=== PATIENT | male | born 1935 | race Caucasian/White ===

== ENCOUNTER → 2016-07-14 12:30 | Outpatient (CLI) | payer MEDICARE, OTHER ==
[2015-06-02 13:13] VITALS: BMI 25.1
[~2016-07-14 12:30] MED LIST: ALDACTONE25 MG PO; BAYER CHEWABLE81 MG PO; COREG6.25 MG PO; LASIX INJ40 MG/4 ML PO
== END | disposition home or self-care (01) ==
LOC: D.CT 12:30
DX: R22.0 Localized swelling, mass and lump, head (principal)

== ENCOUNTER → 2018-01-11 11:24 | Outpatient (CLI) | payer MEDICARE, OTHER ==
[~2018-01-11] VITALS: Ht 175.3 cm; Wt 75.5 kg
--- NOTE | ~2018-01-11 | HEMODYNAMI ---
PATIENT:ADELAIDA GREEN MEDICAL RECORD: [id number] : 35 LOCATION:[facility] ADMISSION DATE: 01/11/18 Generatedon:01/11/201815:31 Patient name: ADELAIDA GREEN Patient #: [id number] SSN: : 1935 Date of study: 01/11/2018 Page: Of Hemodynamic Procedure Report Patient Data Patient Demographics Procedure consent was obtained First Name: ADELAIDA Gender: Male Last Name: PETER : 1935 Patient #: [id number] Age: 83 year(s) Race: Additional ID: [id number] Contact details Address: [address] [place] [address] State: [place] City: [place] Zip code: [address] Past Medical History Allergies: No known allergies Admission Admission Data Admission Date: 01/11/2018 Admission Time: 11:24 Height (in.): 67 BSA: 1.87 (m2) Height (cm.): 170.18 BMI: 26 (kg/m2) Weight (lbs.): 166 Weight (kg.): 75.3 Lab Results Lab Result Date: 01/11/2018 Lab Result Time: 0:00 Biochemistry Name Units Result Min Max BUN mg/dl 22 --(----)-* 7 18 Creatinine mg/dl 1.9 --(----)-* 0.6 1.3 CBC Name Units Result Min Max Hemoglobin g/dl 14.8 --(-*--)-- 13.5 17.5 Procedure Procedure Types Cath Procedure Diagnostic Procedure C LH w/Coronaries Sedation Charges Moderate Sedation up to 15 minutes PCI Procedure PTCA PTCA Initial Procedure Description Procedure Date Procedure Date: 01/11/2018 Procedure Start Time: 15:07 Procedure End Time: 15:27 Procedure Staff Name Function Júnior Bennett MD Performing Physician Marie Gonzalez RT Monitor Juno Wells RT Scrub Rekha Becker RN Nurse Matt Pitt RT High Pressure Kettle Operator Procedure Data Cath Procedure Fluoroscopy Diagnostic fluoroscopy Total fluoroscopy Time: 6.3 time: 6.3 min min Diagnostic fluoroscopy Total fluoroscopy dose: 665 dose: 665 mGy mGy Contrast Material Contrast Material Type Amount (ml) Isovue 300 86 Entry Location Entry Primary Successful Side Size Upsize Upsize Entry Closure Ibrahim ccessful Closure Location (Fr) 1 (Fr) 2 (Fr) Remarks Device Remarks Radial Right 6 Fr Mechanical artery Short Compression Estimated blood loss: 10 ml Diagnostic catheters Device Type Used For End Catheter Placement DIAGNOSTIC [place] 110cm 5 Procedure Fr catheter ([id number]) Procedure Complications No complications Procedure Medications Medication Administration Route Dosage 0.9% NaCl I.V. 100 ml/hr Oxygen etCO2 Nasal cannula 2 l/min Lidocaine 2% added to field 20 Heparin Flush Bag added to field 2 bags (1000units/500ml NS) Radial Cocktail added to field 1 syringe (Verapomil 2mg/Nitro 400mcg/Heparin 1500units) Versed I.V. 2 mg Fentanyl I.V. 50 mcg Versed I.V. 2 mg Heparin Bolus I.V. 4000 units Integrilin (Bolus I.V. 6.8 ml 2mg/ml) Plavix P.O. 600 mg Hemodynamics Rest BSA: 1.87 (m2) O2 Consumption: Estimated: 214.77 (ml/min) O2 Consumption indexed : Estimated:114.85 (ml/min/m) Heart Rate: 73 (bpm) Pressure Samples Time Site Value (mmHg) Purpose Heart Use Rate(bpm) 15:09 LV 83/7,11 Snapshot 73 15:10 AO 80/47(61) Pullback 67 15:10 LV 75/1,15 Pullback 67 Gradients Valve Time Site 1 Site 2 Mean SEP/DFP Peak To Heart Use (mmHg) (sec/min) Peak Rate (mmHg) (bpm) Aortic 15:10 LV AO 0 67 75/1,15 80/47(61) Calculations Valve P-P Mean Valve Index Valve Source Name Gradient Area Flow (cm2) Aortic 0 0 Snapshots Pre Cath Intra NCS Post Cath Vital Signs Time Heart Resp SPO2 etCO2 NIBP (mmHg) Rhythm Pain Sedation Rate (ipm) (%) (mmHg) Status Level (bpm) 14:56:37 68 18 98 30 191/79(165) NSR 0 (11) 10(A) , No pain 15:01:01 69 19 99 31.2 148/76(109) NSR 0 (11) 10(A) , No pain 15:05:21 67 18 97 32 109/61(86) NSR 0 (11) 10(A) , No pain 15:09:39 73 19 97 32.6 78/53(64) NSR 0 (11) 9(A) , No pain 15:13:43 70 19 97 33 90/53(67) NSR 0 (11) 9(A) , No pain 15:17:53 69 19 98 32 97/54(72) NSR 0 (11) 9(A) , No pain 15:22:03 68 18 97 31.6 93/58(79) NSR 0 (11) 9(A) , No pain 15:26:08 72 17 98 32 107/66(88) NSR 0 (11) 10(A) , No pain Medications Time Medication Route Dose Verified Delivered Reason Not es Effectiveness by by 14:55:23 0.9% NaCl I.V. 100 Júnior Rekha used for ml/hr [place] Eugenio procedure MD MORENO 14:55:29 Oxygen etCO2 2 l/min Júnior Rekha used for Nasal [place] Eugenio procedure cannula MD MORENO 14:55:35 Lidocaine 2% added 20ml Júnior Júnior for local to vial [facility] anesthetic field MD RUBIN 14:55:39 Heparin Flush added 2 bags Júnior Júnior for local Bag to [facility] anesthetic (1000units/500ml field MD RUBIN NS) 14:55:49 Radial Cocktail added 1 Júnior Júnior used for (Verapomil to syringe [facility] procedure 2mg/Nitro field MD RUBIN 400mcg/Heparin 1500units) 15:00:36 Versed I.V. 2 mg Júnior Rekha for sedation [facility] Bret Becker MD, RN 15:00:42 Fentanyl I.V. 50 mcg Júnior Rekha for sedation [facility] Bret Becker MD, RN 15:06:19 Versed I.V. 2 mg Júnior Rekha for sedation [facility] Bret Becker MD, RN 15:14:28 Heparin Bolus I.V. 4000 Júnior Rekha for vero ified units [facility] anticoagulation by Dr. MD MORENO [place] 15:16:50 Integrilin I.V. 6.8 ml Júnior Rekha for was zuly (Bolus 2mg/ml) [facility] Bret Becker anticoagulation 3.2mL MD MORENO 15:18:14 Plavix P.O. 600 mg Júnior Guadalupe antiplatelet RN therapy Procedure Log Time Note 14:38:26 Signed procedure consent form obtained from patient. 14:38:29 Diagnostic Cath status Elective 14:38:30 Matt Pitt RT(R) sent for patient. Start room use. 14:38:31 Time tracking: Regular hours (M-F 7:00 - 5:00) 14:38:35 Plan of Care:Hemodynamics will remain stable., Cardiac rhythm will remain stable., Comfort level will be maintained., Respiratory function will remain adequate., Patient/ family verbilizes understanding of procedure., Procedure tolerated without complication., Recovers from procedure without complications.. 14:38:47 H&P Date Dictated: 01/04/2018 Within 30 days and on chart., H&P Addendum completed by physician on day of procedure. (MUST COMPLETE FOR ALL OUTPATIENTS). 14:38:57 Patient allergic to No known allergies 14:39:08 Patient Height : 67 inches 14:39:12 Patient Weight : 166 lbs 14:44:38 Lab Result : BUN 22 mg/dl 14:44:38 Lab Result : Hemoglobin 14.8 g/dl 14:44:38 Lab Result : Creatinine 1.9 mg/dl 14:47:29 Patient received from Pre/Post Procedure Room to CCL 1 Alert and oriented. Tansferred to table in Supine position. 14:47:31 Warm blankets applied, and reynaldo hugger turned on for patient comfort. 14:47:31 Correct patient and procedure confirmed by team. 14:47:35 ECG and BP/O2 sat monitors applied to patient. 14:55:12 Vital chart was started 14:55:23 0.9% NaCl 100 ml/hr I.V. was administered by Rekha Becker RN; used for procedure; 14:55:29 Oxygen 2 l/min etCO2 Nasal cannula was administered by Rekha Bekcer RN; used for procedure; 14:55:35 Lidocaine 2% 20ml vial added to field was administered by Júnior Bennett MD; for local anesthetic; 14:55:39 Heparin Flush Bag (1000units/500ml NS) 2 bags added to field was administered by Júnior Bennett MD; for local anesthetic; 14:55:49 Radial Cocktail (Verapomil 2mg/Nitro 400mcg/Heparin 1500units) 1 syringe added to field was administered by Júnior Bennett MD; used for procedure; 14:56:48 Pre-procedure instructions explained to patient. 14:56:49 Pre-op teaching completed and patient verbalized understanding. 14:56:50 Family in patients room. 14:56:52 Patient NPO since Midnight. 14:56:54 Is the patient allergic to Iodine/contrast media? No. 14:56:55 Is patient on blood thinner?No 14:56:57 Patient diabetic? No. 14:56:59 Previous problem with sedation/anesthesia? No ? 14:57:01 Snore? Yes 14:57:01 Sleep apnea? No 14:57:02 Deviated septum? No 14:57:03 Opens mouth fully? Yes 14:57:04 Sticks out tongue? Yes 14:57:08 Airway obstruction? Yes COPD 14:57:13 Dentures? No OUT 14:57:18 Modified Brenden's test Ulnar < 7 seconds 14:57:20 Patient pain scale 0/10 ?. 14:57:23 IV patent on arrival in left hand with 0.9% NaCl at O. 14:57:25 Lab results completed and on chart. 14:57:27 Right Radial & Right Groin area was prepped with chlora-prep and draped in sterile fashion 14:57:28 Alarms reviewed by R. N. 14:57:28 Sharps counted by scrub and verified by R.N. 14:57:30 --------ALL STOP TIME OUT------ 14:57:31 Final Timeout: patient, procedure, and site verified with staff and physician. All members of the team are in agreement. 14:57:32 Right Radial & Right Groin site verified by team. 14:57:35 Physical assessment completed. ASA score P 2 - A patient with mild systemic disease as per Júnior Bennett MD. 14:57:37 Sedation plan: IV Moderate Sedation Medication:Versed, Fentanyl 15:00:30 Use device set Radial Dx or PCI 15:00:32 ACIST Syringe (48193) opened to sterile field. 15:00:32 Bag Decanter (2002S) opened to sterile field. 15:00:33 ACIST Hand Control (70475) opened to sterile field. 15:00:34 ACIST Manifold (47934) opened to sterile field. 15:00:35 Tegaderm 4 x 4 (1626W) opened to sterile field. 15:00:36 Versed 2 mg I.V. was administered by Rekha Becker RN; for sedation; 15:00:36 Medline Cath Pack ([id number]) opened to sterile field. 15:00:36 DIAGNOSTIC WIRE .035 260cm J wire (337600) opened to sterile field. 15:00:39 MBrace Wrist Support ([id number]) opened to sterile field. 15:00:40 SHEATH 6Fr Prelude Radial ([id number]) opened to sterile field. 15:00:42 Fentanyl 50 mcg I.V. was administered by Rekha Becker RN; for sedation; 15:06:19 Versed 2 mg I.V. was administered by Rekha Becker RN; for sedation; 15:06:22 Procedure started. 15:06:22 Full Disclosure recording started 15:07:11 Local anesthetic to right radial artery with Lidocaine 2% by Júnior Bennett MD.INITIAL ACCESS ONLY 15:07:22 A 6 Fr Short sheath was inserted into the Right Radial artery 15:08:21 A DIAGNOSTIC [place] 110cm 5 Fr catheter (463669) was advanced over the wire and used for Procedure. 15:09:09 LV gram done using CLEMENS 15:09:32 Injector settings: Ml/sec: 7, Volume: 15, 15:09:46 LV hemodynamics recorded. 15:09:57 EF : 55 % 15:11:33 LCA angiography performed. 15:12:05 RCA angiography performed. 15:12:52 Catheter exchanged over wire. 15:13:30 WHISPER 300cm guide wire ([id number]) opened to sterile field. 15:13:30 INFLATOR Merit BasixCompak (SY3620) opened to sterile field. 15:14:28 Heparin Bolus 4000 units I.V. was administered by Rekha Becker RN; for anticoagulation; verified by Dr. Olmstead 15:14:38 GUIDE 6FR EBU 3.5 catheter ([id number]) opened to sterile field. 15:14:46 6 Fr EBU 3.5 guide catheter was inserted over the wire 15:16:50 Integrilin (Bolus 2mg/ml) 6.8 ml I.V. was administered by Rekha Becker RN; for anticoagulation; wasted 3.2mL 15:16:51 UNABLE TO ENGAGE LCA 15:18:11 GUIDE 6FR EBU 4.0 guide catheter ([id number]) opened to sterile field. 15:18:14 Plavix 600 mg P.O. was administered by Rekha Becker RN; for antiplatelet therapy; 15:18:19 6 Fr EBU 4 guide catheter was inserted over the wire 15:19:51 WHISPER 300 wire advanced. 15:23:50 Wire advanced across lesion. 15:24:35 Inflate balloon Inflation number: 1 A EMERGE OTW 3.5 x 20 balloon ([id number]) was prepped and advanced across the Mid LAD, then inflated to 14 JOSÉ for 0:15 (min:sec). 15:24:46 Balloon removed over the wire. 15:25:05 Wire removed. 15:25:06 Guide catheter removed. 15:25:24 Procedure ended.(Physican Out) 15:25:35 TR BAND Standard ([id number]) opened to sterile field. 15:25:45 Sheath removed intact; hemostasis achieved with Mechanical Compression to the Right Radial artery. 15:26:11 Fluoroscopy time 06.30 minutes. 15:26:15 Fluoroscopy dose: 665 mGy 15:26:15 Flurop Dose total: 665 15:26:20 Contrast amount:Isovue 300 86ml. 15:26:22 Sharps counted by scrub and verified by R.N. 15:26:25 TR band inflated with 10cc of air. 15:26:29 Post-procedure physical assessment completed. ASA score P 2 - A patient with mild systemic disease as per Júnior Bennett MD. 15:27:03 Post procedure rhythm: sinus rhythm 15:27:06 Estimated blood loss: 10 ml 15:27:07 Post procedure instruction explained to patient.Patient verbalizes understanding. 15:27:08 Patient needs reinforcement of post procedure teaching. 15:27:22 Procedure type changed to Cath procedure, Diagnostic procedure, LHC, LHC w/Coronaries, Sedation Charges, Moderate Sedation up to 15 minutes, PCI procedure, PTCA, PTCA Initial 15::42 Procedure and supply charges have been captured, reviewed, submitted and are correct. 15:27:44 Procedure Complication : No complications 15:27:46 Vital chart was stopped 15:27:46 See physician's report for complete and final results. 15:27:48 Report given to Pre/Post Procedure Room. 15:27:50 Patient transfered to Pre/Post Procedure Room with Bed. 15:27:51 Procedure ended. 15:27:51 Full Disclosure recording stopped 15:27:54 End room use (Document Last) Intervention Summary Intervention Notes Time ActionType Lesion and Equipment Action# Pressure Duration Attributes Used 15:24:35 Inflate Mid LAD EMERGE OTW 1 14 00:15 balloon 3.5 x 20 balloon ([id number]) Device Usage Item Name Manufacture Quantity Catalog Number Hospital Part Current Minimal Lot# / Charge Number Stock Stock Serial# Code ACIST Syringe Acist 1 09988 051710 305769 962577 20 (12922) [employer] Bag Decanter Microtek 1 2002S 588121 09703 758579 5 (2001S) Medical Inc. ACIST Hand Acist 1 72436 527142 099175 046386 5 Control (69458) Medical Systems Inc ACIST Manifold Acist 1 58032 158818 199095 220189 5 (39963) Medical Systems Inc Tegaderm 4 x 4 3M 1 1626W 277749 917894 933381 5 (1626W) Medline Cath Medline 1 [id number] 941960 36706 588249 5 Pack ([id number]) DIAGNOSTIC WIRE St Nayan 1 222556 761027 408924 952015 30 .035 260cm J wire (128177) MBrace Wrist Advanced 1 140-0250-00 715559 76292 799173 5 Support Vascular (648159832) Dynamics SHEATH 6Fr Merit 1 [id number] 839442 517655 985438 5 Prelude Radial Medical ([id number]) DIAGNOSTIC Terumo 1 69-5434 122269 355110 472593 5 [place] 110cm 5 Fr catheter (049378) WHISPER 300cm Jewell 1 [id number] 399481 301654 520908 5 guide wire Vascular (2497687HT) INFLATOR Merit Merit 1 BG3998 052706 818233 197617 15 CommonBondnhk Medical (YP9582) GUIDE 6FR EBU Medtronic 1 [id number] 358152 50016 933595 3 3.5 catheter ([id number]) GUIDE 6FR EBU Medtronic 1 [id number] 353968 03188 280218 1 4.0 guide catheter (PP3MOW74) EMERGE OTW 3.5 Washta 1 [id number] 246356 908444 976602 5 [id number] x 20 balloon Scientific ([id number]) TR BAND Terumo 1 [id number] 174363 108320 775189 40 Standard ([id number]) Signature Audit [place] Stage Time Signature Unsigned Intra-Procedure 01/11/2018 Marie Gonzalez 3:31:05 PM RT(R) Signatures Monitor : Marie Gonzalez Signature : RT Date : Time : [address] [address]
--- NOTE | ~2018-01-11 | OP ---
PATIENT NAME: ADELAIDA GREEN MEDICAL RECORD: [id number] :35 LOCATION:D.[facility] ADMISSION DATE: SURGEON: CONNIE MALIK MD DATE OF OPERATION: 01/11/2018 PROCEDURE: Left heart catheterization, selective coronary angiography plus PTCA of the restenotic LAD, right radial approach. CATHETERS: Radial sheath, [place] catheter, EBU 4 guiding catheter. The procedure was well tolerated. The patient was returned to [facility]. Sheath was removed. TR band was placed. FINDINGS: Left ventriculography in 30-degree CLEMENS view: Normal wall motion and normal systolic function. CORONARY ANATOMY: LEFT MAIN: Left main is free of disease. LAD: Diffuse 80% restenosis throughout the previously placed stents. CIRCUMFLEX: Free of disease. RIGHT CORONARY ARTERY: Dominant artery, gives rise to PDA, free of disease. IMPRESSION: Restenotic LAD stent. PLAN: Intervention momentarily. DESCRIPTION OF PROCEDURE: Using indwelling radial sheath, EBU 4 guiding catheter provided excellent guide catheter support followed by 300-cm Whisper wire placed across restenosed LAD down this portion of the vessel. Then, I inflated with a 3.5 x 12 mm Dickey balloon up to 12 atmospheres for 45 seconds. Final angiography shows excellent resolution of 80% stenosis with no significant residual. ANDRADE flow was 3 throughout the procedure. Heparin and Integrilin were used during the case. Plavix was loaded in the lab. Sheath was closed with TR band. TRANSINT:[id number] Voice Confirmation ID: [id number] DOCUMENT ID: [id number] CONNIE MALIK MD at 1407 CC: [id number] DICTATION DATE: 01/11/18 1534 ORDNANCE OFFICER: 01/11/18 1803 DEP CLI 01/11/18 [place] [id number] [place] [address]
[~2018-01-11 11:24] MED LIST changes: +PLAVIX75 MG PO
[2018-01-11 12:33] LABS: BASOPHILS 0.5 % (0-2); EOSINOPHILS 1.1 % (0-7); HEMATOCRIT 43.5 % (42.0-54.0); HEMOGLOBIN 14.8 g/dL (13.5-17.5); IMMATURE GRANULOCYTES 0.4 % (0-5); LYMPHOCYTES 23.7 % (15-50); MCH 31.8 pg (26.0-34.0); MCV 93.5 fL (80.0-100.0); MEAN PLATELET VOLUME 10.7 fL (7.4-10.4); MONOCYTES 7.4 % (2-11); NEUTROPHILS 66.9 % (40-80); RBC 4.65 10x6/uL (4.20-6.10); RDW 12.8 % (11.5-14.5)
[2018-01-11 12:38] VITALS: BP 123/61; Ht 175.3 cm; Wt 75.5 kg
[2018-01-11 12:45] LABS: PLATELET COUNT 195 10x3/uL (130-400)
[2018-01-11 12:49] LABS: ANION GAP 12.3 mmol/L (8-16); CALCIUM 7.9 mg/dL (8.5-10.1); CARBON DIOXIDE 28.5 mmol/L (21.0-32.0); CREATININE - SERUM 1.9 mg/dL (0.6-1.3); POTASSIUM - SERUM 4.8 mmol/L (3.5-5.1)
== END | disposition home or self-care (01) ==
LOC: D.CATH 01-10 13:00
PROVIDERS: Internal Medicine Interventional Cardiology
DX: I25.119 Atherosclerotic heart disease of native coronary artery with unspecified angina pectoris (principal); T82.855A Stenosis of coronary artery stent, initial encounter; Z01.812 Encounter for preprocedural laboratory examination

== ENCOUNTER → 2018-11-05 13:05 | Outpatient (CLI) | payer MEDICARE, OTHER ==
[2018-01-11 12:38] VITALS: BMI 24.5
--- NOTE | 2018-11-07 11:58 | EC ---
PATIENT:ADELAIDA GREEN DATE OF SERVICE: 11/05/18 SEX: M MEDICAL RECORD: [id number] DATE OF : 35 LOCATION:D[facility] AGE OF PATIENT: 83 ADMISSION DATE: 11/05/18 REFERRING PHYSICIAN: INTERPRETING PHYSICIAN: CONNIE MALIK MD ECHOCARDIOGRAM REPORT ECHO CHARGES 4 ECHO COMPLETE Date: 11/05/18 CLINICAL DIAGNOSIS: CAD HX COPD/HTN ASSESS EF ECHOCARDIOGRAPHIC MEASUREMENTS (adult normal given) AC root (d.<3.7cm) 4.1 cm LV Septum d (<1.2 cm> 1.6 cm Valve Excursion 1.6 cm LV Septum (systole) 1.8 cm Left Atria (s.<4.0cm> 3.7 cm LVPW d(<1.2cm) 1.4 cm RV (d.<2.3cm) 3.7 cm LVPW (sytole) 1.8 cm LV diastole(<5.6CM) 4.8 cm MV E-F(>70mm/sec) cm LV systole 3.6 cm LVOT Diameter 1.8 cm MV exc.(>10mm) 1.6 cm Est.ejection fraction (50-75%) % DOPPLER: LVIT cm/sec A 70.0 cm/sec E 54.0 cm/sec LA cm/sec RVSP 34 mmHg LVOT 90 cm/sec AOP1/2T m/s Asc. Ao 98 cm/sec RVOT 86 cm/sec RA cm/sec PA 125 cm/sec AV Gradient Peak 3.81 mmHg AV Mean 1.93 mmHg AV Area 2.9 cm MV Gradient Peak 2.30 mmHg MV Mean 0.87 mmHg MV Area cm COMMENTS: Central Office Installer: 2 LISA MA Freight Shipping Agent: 3 Dr. Olmstead TAPE# PACS Pericardial Effusion N DATE OF SERVICE: Adequate 2D, Color Flow, Spectral Doppler, and M-mode LVH is present. LV internal dimension is normal. Wall motion is normal. EF is greater than or equal to 55%. Aortic valve is tricuspid. No evidence of stenosis on Doppler interrogation. Trace AI with color flow imaging. Left atrium is normal at 3.7 cm. Mitral valve shows no prolapse. Trace to mild MR. Right-sided chambers grossly normal. Mild TR. ECHOCARDIOGRAM REPORT [id number] ADELAIDA GREEN TRANSINT:[id number] Voice Confirmation ID: [id number] DOCUMENT ID: [id number] CONNIE MALIK MD at 1158 CC: [id number] DICTATION DATE: 11/06/18 132 PACKAGING SALES REPRESENTATIVE: 11/06/182024 DEP CLI 11/05/18 [place] [id number] [place] [id number]
== END | disposition home or self-care (01) ==
LOC: D.HCCECHO 13:05 → D.HCCARDIO 13:30
PROVIDERS: ATTEND Internal Medicine Interventional Cardiology
DX: I25.10 Atherosclerotic heart disease of native coronary artery without angina pectoris (principal)